=== PATIENT | female | born 1980 | race African-American/Black ===

== ENCOUNTER 2017-04-19 00:37 | Emergency (ER) | payer MEDICARE, OTHER ==
[~2017-04-19] VITALS: Ht 170.2 cm; Wt 91.0 kg
--- NOTE | ~2017-04-19 | EKG ---
PATIENT: KIKE STEPHENS UNIT #: [id number] Ventricular Rate: 79 BPM Atrial Rate: 79 BPM P-R Interval: 162 ms QRS Duration: 80 ms Q-T Interval: 392 ms QTC Calculation(Bezet): 449 ms P [place]: 74 degrees Calculated R [place]: 51 degrees Calculated T [place]: 46 degrees Diagnosis Line: Normal sinus rhythm Diagnosis Line: Possible Left atrial enlargement Diagnosis Line: Borderline ECG Diagnosis Line: When compared with ECG of 11-JAN-2016 20:19, Diagnosis Line: No significant change was found Diagnosis Line: Confirmed by AVEL ERAZO MD ([id number]) on Diagnosis Line: 04/19/2017 8:43:19 AM INTERPRETING MD: CASTRO NAVA
--- NOTE | ~2017-04-19 | CR72 ---
[facility] A Service of [facility] RADIOLOGY TEXT RESULTS PATIENT: KIKE STEPHENS LOCATION: [facility] : 80 UNIT #: [id number] AGE: [address]: Suleiman Quintana MD SEX: F ORDER DR: [id number] [facility] [address] [place], [place] [address] [id number] E MR#: [id number] Acc #: [id number] NAME: KIKE STEPHENS : 1980 SEX: F STUDY DATE/TIME: 04/19/2014 02:50 UNIT: [facility] ROOM: STUDY DESCRIPTION: CR Chest Single View Portable Attending Physician: Suleiman Quintana M.D. Ordering Physician: Suleiman Quintana M.D. Primary Care Physician: Lizzy Wisdom A.P.R.N. MEDICAL IMAGING REPORT This report is preliminary unless electronic signature is present EXAM Portable chest 04/19 at 02:50. INDICATIONS Chest tightness shortness of air that started tonight. TECHNIQUE AP portable chest is compared with 01/11/2016. FINDINGS Heart is enlarged. Lungs are clear. There is some mild vascular congestion. There is no pneumothorax. IMPRESSION Mild cardiomegaly with vascular congestion. Lungs clear. Dictated by... Brock Mccracken Jr., M.D. THIS IS AN ELECTRONICALLY VERIFIED REPORT Brock Mccracken Jr., M.D. at 04/19/2017 9:17 PM ERNESTOK/cristopher TD: 04/19/2017 14:51 JOB #: [id number] MEDICAL IMAGING REPORT Page 1 of 1 COPY
[~2017-04-19 00:37] MED LIST: CLINDAMYCIN HC300 MG PO; CLONIDINE PO; COREG12.5 MG PO; COUMADIN5 MG PO; NORCO 7.5/325 T1 TAB PO; PHOSLO667 MG PO
[2017-04-19 03:37] LABS: BASOPHIL# 0.1 X10e3 (0-0.3); BASOPHIL% 1.2 % (0-2.5); EOSINOPHIL# 0.2 X10e3 (0-0.7); EOSINOPHIL% 3.5 % (0.0-7.0); HEMATOCRIT 24.7 % (35.0-45.0); HEMOGLOBIN 8.1 gm/dL (12.0-16.0); LYMPHOCYTE# 1.2 X10e3 (1.0-3.5); LYMPHOCYTE% 24.1 % (17.0-45.0); MEAN CELL VOLUME 104.5 FL (83-96); MEAN CORPUSCULAR HEMOGLOBIN 34.4 PG (28-34); MEAN CORPUSCULAR HGB CONC 32.9 g/dL (30-36); MEAN PLATELET VOLUME 9.4 FL (6.5-11.5); MONOCYTE# 0.4 X10e3 (0-1.0); MONOCYTE% 7.7 % (3.0-12.0); NEUTROPHIL# 3.3 X10e3 (1.5-7.1); NEUTROPHIL% 63.5 % (40-75); PLATELET COUNT 186 X10e3 (140-420); RED BLOOD COUNT 2.36 X10e (3.90-5.30); RED CELL DISTRIBUTION WIDTH 15.1 % (11.0-15.5); WHITE BLOOD COUNT 5.2 X10e3 (4.0-10.5)
[2017-04-19 03:38] LABS: DIFF IND NO
[2017-04-19 04:21] LABS: ALBUMIN SERUM 3.8 g/dL (3.5-5.0); BILIRUBIN, DIRECT 0.1 mg/dL (0.0-0.2); BILIRUBIN,INDIRECT 0.4 mg/dL (0.0-0.9); BILIRUBIN,TOTAL 0.5 mg/dL (0.2-2.0); BUN/CREATININE RATIO 4.08; CALCIUM SERUM 8.3 mg/dL (8.4-10.2); CREATININE SERUM 16.9 mg/dL (0.6-1.4); GLOM FILT RATE Estimated 2.8 mL/min (>60); POTASSIUM 4.3 mmol/L (3.5-5.1); PROTEIN TOTAL SERUM 6.5 g/dL (6.0-8.3)
[2017-04-19 04:45] LABS: POC - CKMB <1.0 ng/mL (0.0-7.9); POC - TROPONIN <0.05 ng/mL (<=0.05)
== END 2017-04-19 05:10 | disposition home or self-care (01) ==
LOC: CED 00:37
PROVIDERS: Emergency Medicine
DX: R07.89 Other chest pain (principal); R06.02 Shortness of breath; I12.0 Hypertensive chronic kidney disease with stage 5 chronic kidney disease or end stage renal disease; N18.6 End stage renal disease; F17.200 Nicotine dependence, unspecified, uncomplicated; Z88.0 Allergy status to penicillin
CPT/HCPCS: 36415; 71010; 80048; 80076; 82553; 84484; 85025; 93005; 99285